=== PATIENT | male | born 1990 | race Caucasian/White ===

== ENCOUNTER 2025-07-26 14:29 | Emergency (ER) | payer BC, SELFPAY ==
--- NOTE | 2025-07-26 14:47 | ED_ITS ---
HPI - General Adult General Chief complaint: Wound/Laceration Stated complaint: R Cut Leg Time Seen by Provider: 07/26/25 15:00 Source: patient, RN notes reviewed and old records reviewed Mode of arrival: ambulatory Limitations: no limitations History of Present Illness HPI narrative: 35-year-old male presents to the [facility], denies any past medical history. Presents with right lower anterior leg pain, swelling, lip redness, unhealing wounds. Patient reports that he bumped his cr about a month ago, has had a wound that is now not healing, surrounding redness his noted Edema is noted Patient denies any past medical history of high blood pressure however blood pressure is elevated in clinic. Denies any blurry vision, change in vision, headaches or chest pain. Related Data Home Medications ?Medication ?Instructions ?Recorded ?Confirmed ?Last Taken ?Type No Home Medications 07/26/25 07/26/25 U nknown History Allergies Allergy/AdvReac Type Severity Reaction Status Date / Time No Known Allergies Allergy Verified 07/26/25 15:23 Review of Systems 2 Review of Systems: All systems reviewed & are unremarkable except as noted in HPI and below Constitutional: Constitutional: Reports no additional constitutional complaints ENT: Reports system reviewed and no additional complaints, except as documented Cardiovascular: Cardiovascular: Reports no additional cardiovascular complaints, Denies chest pain and Denies dyspnea Respiratory: Respiratory: Reports no additional respiratory complaints, Denies chest congestion, Denies cough and Denies dyspnea Musculoskeletal: Musculoskeletal: Reports as per HPI Integumentary/Breasts: Skin/Breast: Reports as per HPI PMFSH Comments At the time of my signature, I reviewed and agree with the nursing past medical, surgical, social, and family history. There is no relevant family history pertinent to the patient complaint. Exam 2 Const: General: cooperative, no acute distress, well developed, alert, uncomfortable and well nourished Nutritional Appearance: well nourished and obese Orientation/consciousness: patient oriented x3 Limitations: no limitations HENMT: Head: normal to inspection Eyes: General: appearance normal, both eyes and all related structures A lignment and Position: alignment normal Neck: Neck: normal visual inspection, full ROM, no lymphadenopathy and no meningeal signs Chest: Chest palpation & inspection: normal inspection of the chest Resp: Effort & Inspection: normal respiratory effort and able to speak in complete sentences Cardio: Rate: regular rate Skin: General skin exam: normal color and no rashes or lesions noted W ounds: wounds noted Full body images: 1. Multiple scabbed areas time a drainage noted, significant swelling to the lower leg. Erythema measuring 18 x 22 cm Neuro: General: patient oriented x3, gait normal, moves all extremities and no meningeal signs Cognition (Neuro): normal cognition Speech: normal speech Gait exam (Neuro): Normal gait present Extrem: General: normal to inspection, full ROM, capillary refill normal and normal gait Upper/lower leg/hip images: 1. 52 cm, erythema to the anterior as well as crusted, scabbed areas. Significant edema from just below knee to foot and ankle 2. 46 cm Psych: Appearance: grossly normal and well kempt Mental Status: mental status grossly normal Speech and movement: Normal speech and movement present and Clear speech present Affect: normal affect Attitude: cooperative Course Course Level of Care: Express Care Visit Vital Signs Vital signs: Vital Signs Temperature 98 F 07/26/25 14:48 Pulse Rate 99 07/26/25 14:48 Respiratory Rate 16 07/26/25 14:48 Blood Pressure 208/105 H 07/26/25 14:48 Pulse Oximetry 98 07/26/25 14:48 Oxygen Delivery Room Air 07/26/25 14:48 Temperature 98 F 07/26/25 14:48 Pulse Rate 99 07/26/25 14:48 Respiratory Rate 16 07/26/25 14:48 Blood Pressure 210/104 H 07/26/25 15:00 Pulse Oximetry 98 07/26/25 14:48 Oxygen Delivery Room Air 07/26/25 14:48 Reviewed Transfer Transfered to: [facility] Transportation: Other (POV, declined EMS) Transfer rationale: Patient with significant cellulitis to the right lower leg, unhealing wounds as well as an elevated blood pressure with no past diagnosis. Sending for higher level of care Accepting physician: Spoke with Luis Armando MORILLO, Dr. Marinelli Medical Decision Making MDM Narrative Medical decision making narrative: Patient in exam room. Patient is nontoxic but appears uncomfortable. Patient presents with infection to the right lower leg, on healing wounds. Also elevated blood pressure with no past diagnosis. Does not have a primary care provider sending for higher level of care. Patient's mom's preference is [facility]. Transfer instructions reviewed with patient to go directly to the ER. EMS was offered, patient and his family both declined. All questions have been answered, and the patient deny any further questions Some parts of this dictation were generated by voice recognition software and may contain typographical and/or grammatical inaccuracies. Differential Diagnosis Differential Diagnosis: Cellulitis, osteomyelitis, DVT, uncontrolled blood pressure Medical Records Medical records reviewed: Yes I reviewed the external patient's medical records. Vital Signs Vital Signs: Vital Signs Temperature 98 F 07/26/25 14:48 Pulse Rate 99 07/26/25 14:48 Respiratory Rate 16 07/26/25 14:48 Blood Pressure 208/105 H 07/26/25 14:48 Pulse Oximetry 98 07/26/25 14:48 Oxygen Delivery Room Air 07/26/25 14:48 Temperature 98 F 07/26/25 14:48 Pulse Rate 99 07/26/25 14:48 Respiratory Rate 16 07/26/25 14:48 Blood Pressure 210/104 H 07/26/25 15:00 Pulse Oximetry 98 07/26/25 14:48 Oxygen Delivery Room Air 07/26/25 14:48 Reviewed Lab Data Lab results reviewed: Yes I reviewed the patient's lab results. Labs: Reviewed Critical Care Time Critical Care Time Critical Care Time: No Discharge Plan Discharge Clinical Impression: Non-healing wound, Leg edema, right, Elevated blood pressure reading Patient Disposition: Acute Care Hospital Condition: Stable Patient Language: Panamanian Prescriptions: No Action No Home Medications Follow-up/Referrals: PHYSICIAN,RIG SITE ENGINEER [Primary Care Provider, Internal Medicine]
[2025-07-26 14:48] VITALS: BP 208/105; PULSE 99; RESP 16; TEMP 36.6; O2SAT 98
[2025-07-26 14:49] VITALS: BP 206/140
[2025-07-26 15:00] VITALS: BP 210/104
== END 2025-07-26 15:12 | disposition short-term general hospital (02) ==
PROVIDERS: Emergency Provider Nurse Practitioner
DX: S81.801A Unspecified open wound, right lower leg, initial encounter (principal); L03.115 Cellulitis of right lower limb; X58.XXXA Exposure to other specified factors, initial encounter; R03.0 Elevated blood-pressure reading, without diagnosis of hypertension
CPT/HCPCS: 99212; G0463